=== PATIENT | female | born 1980 | race Caucasian/White ===

== ENCOUNTER 2019-08-20 11:09 | Emergency (ER) | payer MEDICAID, OTHER ==
[~2019-08-20] VITALS: Ht 160 cm; Wt 102.0 kg
[~2019-08-20 11:09] MED LIST: ACET1TAB12 PO; ACYC-1 PO; CYCL-1 PO; HYDR1TAB PO; [UNRECOGNIZED DRUG - CODE] PO
[2019-08-20] MEDS ORDERED: albuterol 2.5 MG/3 ML nebule NEB ONE (11:45)
[2019-08-20 13:39] VITALS: BP 150/86
== END 2019-08-20 13:38 | disposition home or self-care (01) ==
LOC: ER 11:09
DX: J45.909 Unspecified asthma, uncomplicated (principal); G89.29 Other chronic pain; Z88.1 Allergy status to other antibiotic agents; Z88.8 Allergy status to other drugs, medicaments and biological substances; Z79.899 Other long term (current) drug therapy
CPT/HCPCS: 71046; 93005; 94640; 99283

== ENCOUNTER 2024-06-12 10:43 | Emergency (ER) | payer OTHER ==
[~2024-06-12] VITALS: Ht 160 cm; Wt 104.5 kg
[2024-06-12 10:49] VITALS: BP 151/88; PULSE 87; RESP 18; TEMP 98.6; O2SAT 96
[2024-06-12] MEDS: dexamethasone sod phosphate 10mg/ml inj IM STA (14:19)
[2024-06-12] MEDS ORDERED: ACET1TAB96 PO (14:48)
[2024-06-12] MEDS ORDERED: METH4TAB81 PO (14:48)
== END 2024-06-12 15:01 | disposition home or self-care (01) ==
LOC: ER 10:43
DX: B34.9 Viral infection, unspecified (principal); J45.909 Unspecified asthma, uncomplicated; Z88.8 Allergy status to other drugs, medicaments and biological substances
CPT/HCPCS: 71046; 87502; 87503; 96372; 99284; J1100

== ENCOUNTER 2024-10-18 19:22 | Emergency (ER) | payer OTHER ==
[~2024-10-18] VITALS: Ht 160 cm; Wt 105.0 kg
[~2024-10-18 19:22] MED LIST changes: +METH4TAB81 PO
[2024-10-18 19:30] VITALS: BP 124/75; PULSE 81; RESP 16; TEMP 97.8; O2SAT 98
--- NOTE | 2024-10-18 19:44 | ELECTROCARDIOGRAPH REPORT ---
[facility] Test Date: 2024-10-18 Test Time: 19:41:12 Pat Name: FRANCIS DEVRIES Department: [facility]-ER Patient ID: [id number] Room: Gender: F Manager [employer]: : 1980 Requested By: MARIA DE JESUS BENJAMIN Order Number: [id number] Reading MD: Measurements Intervals [place] Rate: 67 P: 46 MO: 156 QRS: 23 QRSD: 101 T: 13 QT: 398 QTc: 420 Interpretive Statements Sinus rhythm Borderline T abnormalities, anterior leads Baseline wander in lead(s) V1 Please click the below link to view image of tracing.
[2024-10-18 19:57] LABS: BASOPHILS # (AUTO) 0.1 X10'3 (0-0.2); BASOPHILS % (AUTO) 0.8 % (0-1); EOSINOPHILS # (AUTO) 0.1 X10'3 (0-0.9); EOSINOPHILS % (AUTO) 1.6 % (0-6); HEMATOCRIT 38.4 % (35.0-45.0); HEMOGLOBIN 12.9 g/dl (12.0-16.0); LYMPHOCYTES # (AUTO) 1.9 X10'3 (1.1-4.8); LYMPHOCYTES % (AUTO) 27.1 % (21-51); MEAN CORPUSCULAR HEMOGLOBIN 31.2 PG (27.0-31.0); MEAN CORPUSCULAR HGB CONC 33.6 g/dL (33.0-36.5); MEAN CORPUSCULAR VOLUME 92.6 FL (78-98); MEAN PLATELET VOLUME 7.2 FL (7.4-10.4); MONOCYTES # (AUTO) 0.6 X10'3 (0-0.9); MONOCYTES % (AUTO) 8.4 % (2-12); NEUTROPHILS # (AUTO) 4.4 X10'3 (1.8-7.7); NEUTROPHILS % (AUTO) 62.1 % (42-75); PLATELET COUNT 306 X10'3 (140-440); RED BLOOD COUNT 4.15 X10'6 (4.20-5.60); RED CELL DISTRIBUTION WIDTH 13.3 % (11.5-14.5); WHITE BLOOD COUNT 7.1 X10'3 (4.5-11.0)
--- NOTE | 2024-10-18 20:09 | RADIOLOGY REPORT ---
CHEST RADIOGRAPH Indication: CP Technique: Single frontal view of the chest was obtained COMPARISON: Chest x-ray 06/12/24 FINDINGS: Lines and Tubes: None Lungs: Clear Pleura: No effusion. No pneumothorax. Cardiomediastinal contours: Unremarkable IMPRESSION: No abnormality demonstrated.
[2024-10-18 20:12] LABS: ALANINE AMINOTRANSFERASE 34 U/L (12-78); ALBUMIN 3.5 G/DL (3.4-5.0); ALBUMIN/GLOBULIN RATIO 0.9 (1.1-1.5); ALKALINE PHOSPHATASE 83 IU/L (46-116); ANION GAP 8 (8-16); ASPARTATE AMINO TRANSFERASE 53 U/L (10-37); BILIRUBIN,TOTAL 0.2 MG/DL (0.1-1.0); BLOOD UREA NITROGEN 14 MG/DL (7-18); BUN/CREATININE RATIO 16.9 (10.0-20.0); CALCIUM 8.4 MG/DL (8.5-10.1); CHLORIDE 103 MMOL/L (99-107); CREATININE 0.83 MG/DL (0.40-0.90); GLUCOSE 161 MG/DL (70-104); POTASSIUM 3.6 MMOL/L (3.5-5.1); SODIUM 138 MMOL/L (135-145); TOTAL CARBON DIOXIDE 26.6 MMOL/L (24-32); TOTAL PROTEIN 7.2 G/DL (6.4-8.2); eCRCL 73 ML/MIN; eGFR 75 ML/MIN
[2024-10-18 20:19] LABS: PRO BRAIN NATRIURETIC PEPTIDE 73 PG/ML (0-125)
--- NOTE | 2024-10-18 22:06 | Physician Documentation ---
History of Present Illness ~ Chief Complaint: Chest Wall Pain Stated Complaint: CHEST WALL PAIN Time Seen by MD: 20:21 Primary Medical Doctor: [facility] HPI 44-year-old female reports a chief complaint of chest pain. Patient states she had chest pain initially and states that she felt like she is going to pass out. This happened about 6 hours ago. Patient states she was concerned and reports to the ER. Currently denies fevers or chills. Patient states that the chest pain has improved. Currently denies diaphoresis. Patient states that the pain spread from the center out to both left and right anterior chest araiza. Denies abdominal pain. Denies cough. No other complaints at this time Medication Reconciliation Allergies: Coded Allergies: erythromycin base (Unverified Allergy, Intermediate, RECTAL BLEEDING, 08/20/19) prednisone (Verified Adverse Reaction, Unknown, CAN'T SLEEP, 02/15/14) Scheduled Acetaminophen with Codeine (Tylenol with Codeine #3 Tablet), 1 TABLET PO Q6H Acyclovir (Acyclovir), 400 MG PO BID, (Reported) Cyclobenzaprine* (Cyclobenzaprine*), 1 TAB PO TID Diclofenac Potassium (Diclofenac Potassium), 75 MG PO BID, (Reported) Methylprednisolone (Medrol Dosepak), 0 PO UD Scheduled PRN Hydrocodone/Acetaminophen (Vicodin 5-500 Tablet), 1 TAB PO DAILY PRN for pain, (Reported) Past Medical History Past Medical History: Asthma, Chronic Back Pain Past Surgical History: no surgical history Alcohol Use: None Drug Use: none Lives In: Home Physical Exam Vital Signs: Temperature: 97.8, Source: Oral, Heart Rate: 81, Respiratory Rate: 16, BP: 124/75, Pulse Oximetry: 98, Weight: 105.000 Oxygen Flow Rate: 0 Physical Exam General: Well developed, well nourished, no distress. HEENT: Atraumatic, normal conjunctiva, moist mucous membranes. Neck: Full range of motion, supple. Respiratory: Lungs clear, no respiratory distress. Chest: No accessory muscle use, nontender. Cardiovascular: Regular rate and rhythm. Gastrointestinal: Soft, nontender, nondistended. Bowel sounds present. Extremities: Normal range of motion, nontender, normal capillary refill, no deformity. Back: No midline tenderness, no CVA tenderness. Neurologic: Oriented x4. Distal gross motor and sensory intact all four extremities. Moves all 4 extremities spontaneously. Psychiatric: Normal mood and affect. Skin: Normal color, warm and dry. No edema, no ecchymosis Progress Results/Orders Results/Orders Vital Signs 10/18/24 19:30 Temp 97.8 Pulse 81 Resp 16 B/P (MAP) 124/75 Pulse Ox 98 O2 Flow Rate 0 Laboratory Tests Test 10/18/24 19:46 10/18/24 21:53 White Blood Count 7.1 Red Blood Count 4.15 L Hemoglobin 12.9 Hematocrit 38.4 Mean Corpuscular Volume 92.6 Mean Corpuscular Hemoglobin 31.2 H Mean Corpuscular Hemoglobin Concent 33.6 Red Cell Distribution Width 13.3 Platelet Count 306 Mean Platelet Volume 7.2 L Neutrophils (%) (Auto) 62.1 Lymphocytes (%) (Auto) 27.1 Monocytes (%) (Auto) 8.4 Eosinophils (%) (Auto) 1.6 Basophils (%) (Auto) 0.8 Neutrophils # (Auto) 4.4 Lymphocytes # (Auto) 1.9 Monocytes # (Auto) 0.6 Eosinophils # (Auto) 0.1 Basophils # (Auto) 0.1 CBC Comment Sodium Level 138 Potassium Level 3.6 Chloride Level 103 Carbon Dioxide Level 26.6 Anion Gap 8 Blood Urea Nitrogen 14 Creatinine 0.83 Estimated GFR/1.73 m2 75 BUN/Creatinine Ratio 16.9 Glucose Level 161 H Calcium Level 8.4 L Total Bilirubin 0.2 Aspartate Amino Transf (AST/SGOT) 53 H Alanine Aminotransferase (ALT/SGPT) 34 Alkaline Phosphatase 83 Troponin I High Sensitivity < 4 L Troponin I High Sens Percent Delta Troponin I Hi Sens Absolute Change Pro-B-Type Natriuretic Peptide 73 Total Protein 7.2 Albumin 3.5 Globulin 3.7 Albumin/Globulin Ratio 0.9 L Chemistry Comments Heart Score: Heart Score Response (Comments) Value History Slightly Suspicious 0 EKG Normal 0 Age <45 0 Risk Factors No known risk factors 0 Troponin Normal limit 0 Total 0 Medical Decision Making Additional info obtained from: old records Findings After detailed discussion and joint medical decision-making, diagnostic and imaging results were discussed with the patient. At this time patient does not appear to have evidence of ACS. Patient has no elevated troponins and patient does not appear to have evidence of elevated BNP either. Patient's symptoms are consistent with a palpitation versus atypical chest pain. Patient will be advised to follow up with the primary care to have a referral to Cardiology. ER precautions were given. Patient is stable upon discharge. All patient questions answered to satisfaction Differential Dx:Considerations: Include: other (ACS, atypical chest pain, palpitations) Departure Disposition: HOME / SELF CARE / HOMELESS Impression: Primary Impression: Chest pain Condition: Stable Discharge Instructions: Chest Wall Pain, Nonspecific Chest Pain, Adult Referrals: NO PRIMARY CARE PROVIDER (PCP) Education Educated: Patient Educated regarding: diagnosis, treatment Signature Scribe Signature: None used Attestation: none used HECTOR PENN October 18, 2024 22:06
== END 2024-10-18 22:28 | disposition home or self-care (01) ==
LOC: ER 19:22
DX: R07.9 Chest pain, unspecified (principal); J45.909 Unspecified asthma, uncomplicated; Z88.1 Allergy status to other antibiotic agents; Z88.8 Allergy status to other drugs, medicaments and biological substances; Z79.899 Other long term (current) drug therapy
CPT/HCPCS: 36415; 71045; 80053; 83880; 84484; 85025; 93005; 99285